=== PATIENT | male | born 1975 | race Two or more races ===

== ENCOUNTER 2017-07-30 17:26 | Emergency (ER) | payer MEDICAID ==
[~2017-07-30] VITALS: Ht 160 cm; Wt 73.9 kg
[2017-07-30 21:20] VITALS: BP 124/70
[2017-07-30] MEDS ORDERED: LIDOCAINE 1% (LOCAL ANESTH.) PF 5ml SDV ONE (23:50)
[2017-07-31] MEDS ORDERED: cefTRIAXone W LIDOCAINE 1 GM IM IM ONE
[2017-07-31] MEDS ORDERED: LIDOCAINE 1% (LOCAL ANESTH.) PF 5ml SDV SC ONE
[2017-07-31] MEDS ORDERED: MEPERIDINE HCL (50 MG/ML) 1 ML VIAL IM ONE (00:30)
== END 2017-07-31 01:13 | disposition home or self-care (01) ==
LOC: ER 17:31
DX: S61.041A Puncture wound with foreign body of right thumb without damage to nail, initial encounter (principal); L03.011 Cellulitis of right finger; X58.XXXA Exposure to other specified factors, initial encounter; Y93.9 Activity, unspecified; Y92.89 Other specified places as the place of occurrence of the external cause; Y99.8 Other external cause status
CPT/HCPCS: 73120; 73140; 96372; 99284; J2175; J0696

== ENCOUNTER 2017-07-31 15:26 | Emergency (ER) | payer MEDICAID ==
[~2017-07-31] VITALS: Ht 160 cm; Wt 73.9 kg
[2017-07-31 15:44] VITALS: BP 124/79
[2017-07-31] MEDS ORDERED: cefTRIAXone SOD 1,000 MG VL IM ONE (16:45)
[2017-07-31] MEDS ORDERED: LIDOCAINE 1% (LOCAL ANESTH.) PF 5ml SDV ONE (16:51)
== END 2017-07-31 17:14 | disposition home or self-care (01) ==
LOC: ER 15:30
DX: S60.351D Superficial foreign body of right thumb, subsequent encounter (principal); X58.XXXD Exposure to other specified factors, subsequent encounter
CPT/HCPCS: 96372; 99283; J0696

== ENCOUNTER 2017-08-02 08:38 | Emergency (ER) | payer MEDICAID ==
[~2017-08-02] VITALS: Ht 160 cm; Wt 73.9 kg
[2017-08-02 08:57] VITALS: BP 128/77
== END 2017-08-02 09:24 | disposition home or self-care (01) ==
LOC: ER 08:38
DX: S60.931D Unspecified superficial injury of right thumb, subsequent encounter (principal); X58.XXXD Exposure to other specified factors, subsequent encounter